=== PATIENT | female | born 1985 | race Caucasian/White ===

== ENCOUNTER 2016-04-27 11:53 | Emergency (ER) | payer OTHER | END 2016-04-27 13:02 | disposition home or self-care (01) | LOC: ED 11:53 | DX: J11.1 Influenza due to unidentified influenza virus with other respiratory manifestations (principal); F17.210 Nicotine dependence, cigarettes, uncomplicated ==

== ENCOUNTER 2016-05-21 12:44 | Emergency (ER) | payer OTHER ==
[2016-05-21] MEDS ORDERED: KETOROLAC TROMETHAMINE 60 MG/2 ML VIAL ONE (16:09)
== END 2016-05-21 16:24 | disposition home or self-care (01) ==
LOC: ED 12:44
DX: G44.309 Post-traumatic headache, unspecified, not intractable (principal); F17.210 Nicotine dependence, cigarettes, uncomplicated
CPT/HCPCS: 86141; 85651; 99282; 96372; 36415; 99283; J1885